=== PATIENT | male | born 1975 | race Caucasian/White ===

== ENCOUNTER 2017-12-03 14:15 | Emergency (ER) | payer OTHER, SELFPAY ==
[2017-12-03] MEDS: AUGMENTIN 875 MG TAB PO (15:09)
[2017-12-03] MEDS: ADACEL/BOOSTRIX VACCINE (DIPHTH/PERTUSS/ACELL/TETANUS)0.5ML SYR (90715) IM (15:10)
[2017-12-03] MEDS: LIDOCAINE 1% MDV 20ML VIAL SC (15:55)
== END 2017-12-03 17:15 | disposition home or self-care (01) ==
LOC: M ED 14:15
DX: S51.812A Laceration without foreign body of left forearm, initial encounter (principal); S51.832A Puncture wound without foreign body of left forearm, initial encounter; W54.0XXA Bitten by dog, initial encounter; Y92.410 Unspecified street and highway as the place of occurrence of the external cause; Z87.891 Personal history of nicotine dependence
CPT/HCPCS: 90715